=== PATIENT | male | born 1980 | race Caucasian/White ===

== ENCOUNTER 2020-07-21 13:46 | Emergency (ER) | payer OTHER, SELFPAY ==
[~2020-07-21] VITALS: Ht 182.9 cm; Wt 143.9 kg
[2020-07-21 13:48] VITALS: BP 145/76
[2020-07-21] MEDS ORDERED: ASPIRIN 81 MG TABLET CHEW ONE (14:15)
[2020-07-21 14:27] LABS: BASOPHILS % (AUTO) 1 % (0-1); EOSINOPHILS % (AUTO) 2 % (1-7); LYMPHOCYTES % (AUTO) 27 % (22-44); MEAN CORPUSCULAR HEMOGLOBIN 31.4 pg (27.5-34.5); MEAN CORPUSCULAR HGB CONC 33.3 g/dL (33.2-36.2); MONOCYTES % (AUTO) 10 % (2-9); NEUTROPHILS % (AUTO) 61 % (42-75); PLATELET COUNT 217 x10^3/uL (130-400); RED BLOOD COUNT 4.56 x10^6/uL (4.38-5.82); RED CELL DISTRIBUTION WIDTH 12.9 % (9.4-14.8)
[2020-07-21] MEDS ORDERED: ASPIRIN 81 MG TABLET CHEW PO ONE (14:30)
[2020-07-21 14:31] LABS: MD NO
[2020-07-21 14:37] LABS: ALANINE AMINOTRANSFERASE 44 U/L (12-78); ALBUMIN 3.9 g/dL (3.4-5.0); ANION GAP 4 mmol/L (5-15); CALCIUM 8.4 mg/dL (8.5-10.1); CHLORIDE 110 mmol/L (98-107); CREATININE 1.19 mg/dL (0.7-1.3)
[2020-07-21 14:42] LABS: ALKALINE PHOSPHATASE 65 U/L (45-117); BILIRUBIN,TOTAL 0.8 mg/dL (0.2-1.0); TOTAL PROTEIN 7.5 g/dL (6.4-8.2); TROPONIN I < 0.015 ng/mL (0.000-0.045)
== END 2020-07-21 15:38 | disposition home or self-care (01) ==
LOC: ED 15:33
DX: R06.00 Dyspnea, unspecified (principal); Z20.828 Contact with and (suspected) exposure to other viral communicable diseases; R06.02 Shortness of breath; R07.89 Other chest pain
CPT/HCPCS: 36415; 71045; 80053; 83880; 84484; 85025; 87635; 93005; 99285